=== PATIENT | female | born 1950 | race African-American/Black ===

== ENCOUNTER → 2017-02-03 | Outpatient (CLI) | payer BC, OTHER ==
--- NOTE | 2017-02-03 14:35 | RADIOLOGY REPORT (SQ) ---
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 Reconstructed coronal and sagittal MPR images reviewed. All images stored on PACS. All CT scanners at this facility use dose modulation, iterative reconstruction, and/or weight based d osing when appropriate to reduce radiation dose to as low as reasonably achievable (ALARA). [facility]: Dose Right [facility]: CareDose [facility]: Dose Right [facility]: Teradose 4D [facility]: Gogo CONTRAST TYPE AND DOSE: contrast/concentration: Isovue 370.00 mg/ml; Total Contrast Delivered: 75.0 ml; Total Saline Delivered: 55.0 ml RENAL FUNCTION: Creatinine 1.2 RADIATION DOSE: 23.5 mGy. LIMITATIONS: None. FINDINGS: SKULL BASE: Intact. MAJOR SALIVARY GLANDS: No solid or cystic masses. No inflammatory changes. LYMPHADENOPATHY: No bulky adenopathy. Mildly enlarged right jugulodigastric lymph node, 1.3 x 1.2 cm in size axial image 43, nonspecific. Mildly enlarged left carotid space lymph node 1.2 x 0.9 cm axi al image 50, nonspecific. . MUCOSAL MASSES OR ASYMMETRY: No mucosal masses or asymmetry. LARYNX/CORDS: No abnormal findings. VASCULAR STRUCTURES: The major vessels are patent. LUNG APICES: Clear. BONES: Intact. THYROID: Left lobe thyroid is diffusely enlarged, 7.3 cm transverse by 6.6 cm AP by 8.3 cm craniocaud ad. Right lobe thyroid measures 2.6 x 2.1 cm in size. PARANASAL SINUSES: Opacified left sphenoid sinus. Paranasal sinuses otherwise unremarkable. OTHER: No other significant finding. IMPRESSION: Enlarged left lobe thyroid, protruding into the thoracic inlet. TECHNICAL DOCUMENTATION: JOB ID: [id number] Quality ID # [id number]: Final reports with documentation of one or more dose reduction techniques (e.g., Au tomated exposure control, adjustment of the mA and/or kV according to patient size, use of iterative reconstruction technique) 2010 [employer]- All Rights Reserved
== END ==
LOC: RAD 09:52
PROVIDERS: ATTEND Surgery
DX: E04.2 Nontoxic multinodular goiter (principal)
CPT/HCPCS: 70491; 82565